=== PATIENT | female | born 1935 | race African-American/Black ===

== ENCOUNTER 2017-01-03 09:30 | Observation (INO) | payer OTHER ==
[~2017-01-03] VITALS: Ht 165.1 cm; Wt 76.7 kg
[~2017-01-03 09:30] MED LIST: DILT180C69 PO; GLIP10TA10 PO; LISI40TA4 PO; METF500T4 PO; TRAZ-129 PO
[2017-01-03] MEDS ORDERED: SODIUM CHLORIDE 0.9% 250 ML IV ONE (12:00)
[2017-01-03] MEDS ORDERED: DEXTROSE 50% WATER 50ML SYRINGE IV ONE ×3 (12:10→20:18)
[2017-01-03] MEDS ORDERED: GLUCAGON,HUMAN RECOMBINANT 1MG/VIAL IM ONE (12:15)
[2017-01-03 12:32] LABS: BASOPHILS % 0.4 % (0.0-2.0); EOSINOPHILS % 0.4 % (0.0-5.0); HEMOGLOBIN. 13.4 g/dL (12.0-16.0); MEAN CORPUSCULAR HEMOGLOBIN 29.7 pg (28.0-32.0); MEAN CORPUSCULAR HGB CONC 33.5 g/dL (31.0-37.0); MEAN CORPUSCULAR VOLUME 88.7 fL (81.0-99.0); MEAN PLATELET VOLUME 9.3 fl (7.4-10.4); MONOCYTES % 5.6 % (2.0-8.0); NEUTROPHILS % 78.6 % (40.0-76.0); PLATELET 175 x1000/uL (130-400); RED BLOOD CELL COUNT 4.51 mill/uL (4.2-5.4); RED CELL DISTRIBUTION WIDTH 12.3 % (11.6-14.6); WHITE BLOOD COUNT 7.1 x1000/uL (4.5-11.0)
[2017-01-03 12:35] LABS: PROTHROMBIN TIME 10.5 sec
[2017-01-03] MEDS ORDERED: HYDR25TA PO (12:37)
[2017-01-03] MEDS ORDERED: TRAZ-129 PO (12:38)
[2017-01-03 12:43] LABS: ALANINE AMINOTRANSFERASE 15 IU/L (13-61); ALBUMIN 3.1 g/dL (3.4-5.0); ANION GAP 10; CALCIUM 8.9 mg/dL (8.5-10.1); CARBON DIOXIDE 30 mEq/L (21-32); CHLORIDE 103 mEq/L (98-107); INDEX HEMOLYSI 1 (1-3); INDEX ICTERIC 1 (1-4); INDEX LIPEMIC 1 (1-3); LIPASE 173 IU/L (73-393); UREA NITROGEN BLOOD 12 mg/dL (7-21); eGFR > 60 mL/min (>60)
[2017-01-03 12:44] LABS: NT PRO B-TYPE NATRIURETIC PEP 120 pg/mL (5-125); TROPONIN I < 0.02 ng/mL (0.00-0.04)
[2017-01-03] MEDS ORDERED: ONDANSETRON HCL 4MG/2ML VIAL IV PRN (13:45)
[2017-01-03] MEDS ORDERED: ACETAMINOPHEN 325MG TABLET PO PRN (13:45)
[2017-01-03] MEDS ORDERED: IPRATROPIUM/ALBUTEROL 0.5-3(2.5)MG/3ML NEB INH PRN (13:45)
[2017-01-03] MEDS ORDERED: CLONIDINE 0.1MG TABLET PO PRN (13:45)
[2017-01-03 15:32] LABS: CHLORIDE 106 mEq/L (98-107); INDEX HEMOLYSI 1 (1-3); INDEX ICTERIC 1 (1-4); INDEX LIPEMIC 1 (1-3)
[2017-01-03 15:41] LABS: ANION GAP 8; CALCIUM 9.1 mg/dL (8.5-10.1); CARBON DIOXIDE 32 mEq/L (21-32); CREATINE KINASE 27 IU/L (26-192); UREA NITROGEN BLOOD 11 mg/dL (7-21); eGFR > 60 mL/min (>60)
[2017-01-03 18:47] VITALS: BP 133/76
[2017-01-03 20:26] VITALS: BP 140/80
[2017-01-03 23:03] VITALS: BP 140/80
[2017-01-04] VITALS: BP 163/94
[2017-01-04 00:42] LABS: CREATINE KINASE 34 IU/L (26-192); INDEX HEMOLYSI 1 (1-3)
[2017-01-04 04:00] VITALS: BP 140/78
[2017-01-04 07:21] LABS: BASOPHILS % 0.2 % (0.0-2.0); EOSINOPHILS % 1.3 % (0.0-5.0); HEMATOCRIT. 39.8 % (36.0-48.0); HEMOGLOBIN. 13.2 g/dL (12.0-16.0); LYMPHOCYTES % 21.8 % (20.0-50.0); MEAN CORPUSCULAR HEMOGLOBIN 29.5 pg (28.0-32.0); MEAN CORPUSCULAR HGB CONC 33.3 g/dL (31.0-37.0); MEAN CORPUSCULAR VOLUME 88.6 fL (81.0-99.0); MEAN PLATELET VOLUME 9.7 fl (7.4-10.4); MONOCYTES % 7.7 % (2.0-8.0); PLATELET 201 x1000/uL (130-400); RED BLOOD CELL COUNT 4.49 mill/uL (4.2-5.4); RED CELL DISTRIBUTION WIDTH 12.5 % (11.6-14.6); WHITE BLOOD COUNT 7.4 x1000/uL (4.5-11.0)
[2017-01-04 07:47] VITALS: BP 150/73
[2017-01-04 07:56] LABS: T4 FREE 1.21 ng/dL (0.76-1.46)
[2017-01-04] MEDS ORDERED: ENOXAPARIN 40MG/0.4ML SYR SUBCUT SCH (09:00)
[2017-01-04 10:58] VITALS: BP 150/73
== END 2017-01-04 11:30 | disposition home or self-care (01) ==
LOC: ER 10:07 → INTOOBSV 12:53 → 8WST 12:53
PROVIDERS: ADMIT Internal Medicine; ATTEND Internal Medicine
DX: E11.649 Type 2 diabetes mellitus with hypoglycemia without coma (principal); R07.9 Chest pain, unspecified; E78.00 Pure hypercholesterolemia, unspecified; E78.5 Hyperlipidemia, unspecified; I11.9 Hypertensive heart disease without heart failure; I63.9 Cerebral infarction, unspecified; I44.2 Atrioventricular block, complete; Z95.0 Presence of cardiac pacemaker; I25.10 Atherosclerotic heart disease of native coronary artery without angina pectoris
CPT/HCPCS: 36415; 71010; 80048; 80053; 80061; 82550; 82962; 83036; 83690; 83880; 84439; 84481; 84484; 85025; 85610; 87040; 93005; 96372; 96374; 99285; G0378; J1610; J1650; J7030; J7050

== ENCOUNTER 2017-07-03 08:43 | Inpatient (IN) | payer OTHER ==
[~2017-07-03] VITALS: Ht 165.1 cm; Wt 65.8 kg
[~2017-07-03 08:43] MED LIST changes: +HYDR25TA PO; -METF500T4 PO
[2017-07-03] MEDS ORDERED: FUROSEMIDE 40MG/4ML VIAL IV STA (08:48)
[2017-07-03 09:36] LABS: BASOPHILS % 0.2 % (0.0-2.0); EOSINOPHILS % 0.5 % (0.0-5.0); HEMATOCRIT. 38.5 % (36.0-48.0); HEMOGLOBIN. 12.5 g/dL (12.0-16.0); LYMPHOCYTES % 13.8 % (20.0-50.0); MEAN CORPUSCULAR HEMOGLOBIN 27.7 pg (28.0-32.0); MEAN CORPUSCULAR VOLUME 85.3 fL (81.0-99.0); MEAN PLATELET VOLUME 9.8 fl (7.4-10.4); MONOCYTES % 3.7 % (2.0-8.0); NEUTROPHILS % 81.8 % (40.0-76.0); PLATELET 180 x1000/uL (130-400); RED BLOOD CELL COUNT 4.52 mill/uL (4.2-5.4); RED CELL DISTRIBUTION WIDTH 14.6 % (11.6-14.6)
[2017-07-03 09:40] LABS: CLARITY URINE TURBID (CLEAR); COLOR URINE YELLOW (YELLOW); GLUCOSE URINE 2+ (NEGATIVE); KETONES URINE NEGATIVE (NEGATIVE); LEUKOCYTE ESTERASE URINE NEGATIVE (NEGATIVE); NITRITE URINE NEGATIVE (NEGATIVE); OCCULT BLOOD URINE 2+ (NEGATIVE); PROTEIN URINE 2+ (NEGATIVE); SPECIFIC GRAVITY URINE 1.023 (1.005-1.030)
[2017-07-03 09:43] LABS: INR 1.6; PARTIAL THROMBOPLASTIN TIME 30.2 sec (23.4-31.0); PROTHROMBIN TIME 17.1 sec (9.4-11.6)
[2017-07-03 09:52] LABS: CARBON DIOXIDE 30 mEq/L (21-32); CHLORIDE 105 mEq/L (98-107); TROPONIN I 0.04 ng/mL (0.00-0.04)
[2017-07-03] MEDS ORDERED: NITROGLYCERIN OINT 1GM/INCH UDPKT TD ONE (10:00)
[2017-07-03 10:44] LABS: BG BASE EXCESS -0.5 mmol/L (-2.0-2.0); BG BILEVEL POS AIRWAY PRESSURE 15/5; BG CARBOXYHEMOGLOBIN 0.3 % (0.5-1.5); BG DEOXYHEMOGLOBIN 0.4 % (0.0-5.0); BG HCO3 ACT 26.2 mmol/L (22.0-26.0); BG METHEMOGLOBIN 0.5 % (0.0-1.5); BG OXYGEN SATURATION 99.6 % (92.0-98.5); BG OXYHEMOGLOBIN 98.8 % (94.0-97.0); BG PCO2 51.6 mmHg (35.0-45.0); BG PH 7.323 (7.350-7.450); BG PO2 436.3 mmHg (75.0-100.0); BG SAMPLE SITE RIGHT BRACHIAL; BG TOTAL HEMOGLOBIN 12.6 g/dL (12.0-18.0); BG VENT MODE MASK - BIPAP; BG VENT RATE 16 set
[2017-07-03] MEDS ORDERED: METHYLPREDNISOLONE SOD SUCC 125 MG/2 ML VIAL IV ONE (12:30)
[2017-07-03] MEDS ORDERED: IPRATROPIUM/ALBUTEROL 0.5-3(2.5)MG/3ML NEB HHN ONE (12:30)
[2017-07-03 14:30] VITALS: BP 134/74
[2017-07-03] MEDS ORDERED: GUAIFENESIN 200MG/10ML SUGAR FREE UDC PO PRN (16:00)
[2017-07-03] MEDS ORDERED: ONDANSETRON HCL 4MG/2ML VIAL IV PRN (16:00)
[2017-07-03] MEDS ORDERED: DEXTROSE 50% WATER 50ML SYRINGE IV PRN (16:00)
[2017-07-03] MEDS ORDERED: ACETAMINOPHEN 325MG TABLET PO PRN (16:00)
[2017-07-03] MEDS ORDERED: MAGNESIUM HYDROXIDE 400MG/5ML 30ML UDC PO PRN (16:00)
[2017-07-03] MEDS ORDERED: IPRATROPIUM/ALBUTEROL 0.5-3(2.5)MG/3ML NEB INH PRN (16:00)
[2017-07-03] MEDS ORDERED: DIPHENHYDRAMINE 50MG/ML VIAL IV PRN (16:00)
[2017-07-03] MEDS ORDERED: MAGNESIUM/ALUMINUM HYDROXIDE/SIMETHICONE 30ML UDC PO PRN (16:00)
[2017-07-03] MEDS ORDERED: CLONIDINE 0.1MG TABLET PO PRN (16:00)
[2017-07-03 17:11] VITALS: BP 145/90
[2017-07-03] MEDS: BLOOD SUGAR DIAGNOSTIC STRIP TEST SCH ×2 (17:30→21:06)
[2017-07-03] MEDS ORDERED: ENOXAPARIN 40MG/0.4ML SYR SUBCUT SCH (18:00)
[2017-07-03] MEDS: INSULIN LISPRO 100 UNITS/ML SUBCUT SCH ×2 (18:00→21:16)
[2017-07-03] MEDS ORDERED: FUROSEMIDE 20MG/2ML VIAL IV NR (18:29)
[2017-07-03] MEDS ORDERED: TEMAZEPAM 15MG CAPSULE PO PRN (18:30)
[2017-07-03 20:00] VITALS: BP 139/72
[2017-07-03] MEDS: ATORVASTATIN CALCIUM 10MG TABLET PO SCH (21:05)
[2017-07-03] MEDS: RIVAROXABAN 10 MG TABLET PO SCH (21:05)
[2017-07-03] MEDS: CARVEDILOL 3.125 MG TABLET PO SCH (21:06)
[2017-07-03 22:00] VITALS: BP 131/74
[2017-07-03] MEDS: NITROGLYCERIN OINT 1GM/INCH UDPKT TD SCH (22:20)
[2017-07-03] MEDS: SODIUM CHLORIDE 0.9% INJ 3ML FLUSH IVF SCH (22:21)
[2017-07-04] VITALS (14 sets, daily range): BP systolic 128–164; BP diastolic 57–106
[2017-07-04] MEDS: NITROGLYCERIN OINT 1GM/INCH UDPKT TD SCH ×3 (06:23→21:29)
[2017-07-04] MEDS: SODIUM CHLORIDE 0.9% INJ 3ML FLUSH IVF SCH (06:23)
[2017-07-04] MEDS: BLOOD SUGAR DIAGNOSTIC STRIP TEST SCH ×4 (07:44→20:47)
[2017-07-04 07:59] LABS: CARBON DIOXIDE 31 mEq/L (21-32); CHLORIDE 106 mEq/L (98-107); TROPONIN I 0.03 ng/mL (0.00-0.04)
[2017-07-04] MEDS: FUROSEMIDE 40MG/4ML VIAL IVP SCH (08:22)
[2017-07-04] MEDS: CARVEDILOL 3.125 MG TABLET PO SCH ×2 (08:22→20:46)
[2017-07-04] MEDS: LISINOPRIL 10MG TABLET PO SCH (08:23)
[2017-07-04] MEDS: INSULIN LISPRO 100 UNITS/ML SUBCUT SCH ×4 (09:17→20:47)
[2017-07-04] MEDS ORDERED: KDUR20 PO (09:59)
[2017-07-04] MEDS ORDERED: CARV3.1242 PO (09:59)
[2017-07-04] MEDS ORDERED: FURO-151 PO (09:59)
[2017-07-04] MEDS ORDERED: ATOR10TA69 PO (09:59)
[2017-07-04] MEDS ORDERED: LISI10TA5 PO (09:59)
[2017-07-04] MEDS ORDERED: RIVA20TA PO (09:59)
[2017-07-04] MEDS: RIVAROXABAN 10 MG TABLET PO SCH (18:17)
[2017-07-04] MEDS: ATORVASTATIN CALCIUM 10MG TABLET PO SCH (20:45)
[2017-07-05] VITALS (11 sets, daily range): BP systolic 145–169; BP diastolic 78–97
[2017-07-05] MEDS: SODIUM CHLORIDE 0.9% INJ 3ML FLUSH IVF SCH ×2 (05:48→16:05)
[2017-07-05] MEDS: NITROGLYCERIN OINT 1GM/INCH UDPKT TD SCH ×2 (05:48→16:05)
[2017-07-05 07:09] LABS: CARBON DIOXIDE 33 mEq/L (21-32); CHLORIDE 106 mEq/L (98-107); T4 FREE 1.44 ng/dL (0.76-1.46)
[2017-07-05] MEDS: BLOOD SUGAR DIAGNOSTIC STRIP TEST SCH ×2 (07:30→11:32)
[2017-07-05] MEDS: INSULIN LISPRO 100 UNITS/ML SUBCUT SCH ×2 (08:00→12:02)
[2017-07-05 08:29] LABS: BG BASE EXCESS 5.8 mmol/L (-2.0-2.0); BG CARBOXYHEMOGLOBIN 0.6 % (0.5-1.5); BG DEOXYHEMOGLOBIN 8.1 % (0.0-5.0); BG FRACTION INSPIRED OXYGEN 21; BG HCO3 ACT 30.8 mmol/L (22.0-26.0); BG METHEMOGLOBIN 0.4 % (0.0-1.5); BG OXYGEN SATURATION 91.8 % (92.0-98.5); BG OXYHEMOGLOBIN 90.9 % (94.0-97.0); BG PCO2 46.2 mmHg (35.0-45.0); BG PH 7.442 (7.350-7.450); BG PO2 61.2 mmHg (75.0-100.0); BG SAMPLE SITE RIGHT RADIAL; BG TOTAL HEMOGLOBIN 13.1 g/dL (12.0-18.0); BG VENT MODE ROOM AIR
[2017-07-05] MEDS: FUROSEMIDE 40MG/4ML VIAL IVP SCH (08:32)
[2017-07-05] MEDS: CARVEDILOL 3.125 MG TABLET PO SCH (08:32)
[2017-07-05] MEDS: LISINOPRIL 10MG TABLET PO SCH (08:32)
[2017-07-05] MEDS ORDERED: METRONIDAZOLE 500MG TABLET PO NR (15:22)
[2017-07-05] MEDS: RIVAROXABAN 10 MG TABLET PO SCH (16:05)
== END 2017-07-05 17:45 | disposition home or self-care (01) | DRG 291 ==
LOC: ER 08:58 → INTOOBSV 12:18 → 5EST 12:18 → OBSVTOIN 12:18 → EDBEDREQTM 12:20 → EDBEDREQ 12:20 → ENRESERV 13:32 → 5EST 14:30
PROVIDERS: ADMIT Internal Medicine; ATTEND Internal Medicine
PROC: 5A09357 Assistance with Respiratory Ventilation, Less than 24 Consecutive Hours, Continuous Positive Airway Pressure (ICD-10-PCS; principal; 2017-07-03)
DX: I11.0 Hypertensive heart disease with heart failure (principal); J96.90 Respiratory failure, unspecified, unspecified whether with hypoxia or hypercapnia; I50.43 Acute on chronic combined systolic (congestive) and diastolic (congestive) heart failure; I27.20 Pulmonary hypertension, unspecified; E11.319 Type 2 diabetes mellitus with unspecified diabetic retinopathy without macular edema; I42.9 Cardiomyopathy, unspecified; E05.90 Thyrotoxicosis, unspecified without thyrotoxic crisis or storm; E78.00 Pure hypercholesterolemia, unspecified; J44.9 Chronic obstructive pulmonary disease, unspecified; L57.0 Actinic keratosis; K42.9 Umbilical hernia without obstruction or gangrene; E11.65 Type 2 diabetes mellitus with hyperglycemia; Z82.49 Family history of ischemic heart disease and other diseases of the circulatory system; I34.0 Nonrheumatic mitral (valve) insufficiency; Z86.73 Personal history of transient ischemic attack (TIA), and cerebral infarction without residual deficits; Z87.891 Personal history of nicotine dependence; Z79.899 Other long term (current) drug therapy; Z95.810 Presence of automatic (implantable) cardiac defibrillator; Z87.440 Personal history of urinary (tract) infections; Z86.718 Personal history of other venous thrombosis and embolism
CPT/HCPCS: 36415; 36600; 71010; 80048; 80053; 81001; 82375; 82805; 82962; 83036; 83520; 83605; 83735; 83880; 84439; 84443; 84481; 84484; 85025; 85610; 85651; 85730; 87040; 93005; 93306; 93970; 94660; 96374; 96375; 97162; 99291; J1815; J1940; J2930